=== PATIENT | female | born 1955 | race Caucasian/White ===

== ENCOUNTER 2023-03-27 10:17 | Outpatient (REF) | payer MEDICARE, SELFPAY ==
[2023-03-27 10:18] VITALS: BP 163/74; PULSE 76; RESP 16; TEMP 36.2; O2SAT 99
[2023-03-27 14:17] VITALS: BMI 20.8
== END 2023-03-27 10:18 | disposition home or self-care (01) ==
LOC: HO.MS 10:17
PROVIDERS: PCP Family Medicine; Visit Provider Ophthalmology
PROC: (CPT 66821; principal; 2023-03-27 13:50)
DX: H26.491 Other secondary cataract, right eye (principal)
CPT/HCPCS: 66821